=== PATIENT | female | born 1970 ===

== ENCOUNTER 2016-06-26 20:40 | Observation (INO) | payer OTHER ==
[2016-06-26 20:40] VITALS: BMI 29.9
[2016-06-26] MEDS ORDERED: Albuterol-Ipratrop 3 mg / 0.5 (3 ml) UD IH STA ×2 (21:58→23:19)
--- NOTE | 2016-06-26 22:02 | ED PDOC ---
HPI: Asthma Time Seen by Provider: 06/26/16 21:45 Chief Complaint (Nursing): Chest Pain Chief Complaint (Provider): sob History Per: Patient History/Exam Limitations: no limitations Onset/Duration Of Symptoms: Days (3 weeks) Current Symptoms Are (Timing): Still Present Associated Symptoms: Cough, Itching, Chest Pain Precipitating Factors: URI Symptoms, Allergies Additional History Per: Patient Additional Complaint(s): 46 y/o female history of asthma presents with shortness of breath x 3 weeks. Associated nonproductive cough, nasal congestion, itchy eyes, and chest pain with cough. Patient seen by PMD last week and prescribed Claritin, albuterol HFA, and Benadryl without improvement of symptoms. Denies fever, headache, ear pain, nausea/vomiting, palpitations, abdominal pain, changes in bowel movements , leg pain/swelling. Patient states she gets asthma attack this time every year due to allergies. Past Medical History Reviewed: Historical Data, Nursing Documentation, Vital Signs Vital Signs: Last Vital Signs Temp 98.1 F 06/26/16 20:51 Pulse 92 H 06/26/16 20:51 Resp 18 06/26/16 20:51 BP 116/74 06/26/16 20:51 Pulse Ox 95 06/26/16 20:51 - Medical History PMH: Asthma - Surgical History Surgical History: Appendectomy - Family History Family History: States: Unknown Family Hx - Social History Current smoker - smoking cessation education provided: No Alcohol: None Drugs: Denies - Home Medications Home Medications: Ambulatory Orders Medication Instructions Recorded DiphenhydrAMINE [Benadryl] 1 tab PO Q6 PRN #24 cap 07/26/14 Loratadine [Claritin] 10 mg PO DAILY 06/27/16 - Allergies Allergies/Adverse Reactions: Allergies Allergy/AdvReac Type Severity Reaction Status Date / Time pollen extracts Allergy CONGESTION Verified 06/26/16 20:50 Review of Systems ROS Statement: Except As Marked, All Systems Reviewed And Found Negative ENT: Positive for: Nose Discharge, Nose Congestion Cardiovascular: Positive for: Chest Pain Respiratory: Positive for: Cough, Shortness of Breath Physical Exam - Reviewed Nursing Documentation Reviewed: Yes Vital Signs Reviewed: Yes - Physical Exam Appears: Positive for: Well, Non-toxic, No Acute Distress Head Exam: Positive for: ATRAUMATIC, NORMAL INSPECTION, NORMOCEPHALIC Skin: Positive for: Normal Color Eye Exam: Positive for: Normal appearance ENT: Positive for: Nasal Congestion Neck: Positive for: Normal Cardiovascular/Chest: Positive for: Regular Rate, Rhythm Respiratory: Positive for: Wheezing (diffuse expiratory). Negative for: Accessory Muscle Use, Respiratory Distress Gastrointestinal/Abdominal: Positive for: Normal Exam Back: Positive for: Normal Inspection Extremity: Positive for: Normal ROM Neurologic/Psych: Positive for: Alert, Oriented - Laboratory Results Result Diagrams: 06/26/16 22:18 06/26/16 22:18 - ECG O2 Sat by Pulse Oximetry: 95 - Radiology X-Ray: Viewed By Ar X-Ray Interpretation: No Acute Disease - Progress ED Course And Treament: labs, ekg, chest xray, IV solumedrol, duonebs Patient with O2 92-93% room air after solumedrol, [address] in observation for acute asthma exacerbation/bronchitis Disposition - Clinical Impression Clinical Impression: Asthma exacerbation - Patient ED Disposition Is Patient to be Admitted: Yes - Disposition Disposition Time: 01:11 Condition: FAIR
[2016-06-26 22:25] LABS: BASO # 0.1 K/uL (0.0-0.2); BASO % 0.9 % (0.0-2.0); EOS # 1.5 K/uL (0.0-0.7); EOS % 15.3 % (0.0-4.0); HEMATOCRIT 40.4 % (34.0-47.0); LYMPH # 3.2 K/uL (1.0-4.3); LYMPH % 32.8 % (20.0-40.0); MEAN CELL VOLUME 85.6 fl (81.0-99.0); MEAN CORPUSCULAR HEMOGLOBIN 28.5 pg (27.0-31.0); MEAN CORPUSCULAR HGB CONC 33.2 g/dL (33.0-37.0); MEAN PLATELET VOLUME 10.4 fl (7.2-11.7); MONO # 0.6 K/uL (0.0-0.8); MONO % 6.3 % (0.0-10.0); NEUT # 4.3 K/uL (1.8-7.0); NEUT % 44.7 % (50.0-75.0); NRBC % 0.1 % (0.0-0.0); RED CELL DISTRIBUTION WIDTH 14.4 % (11.5-14.5); WHITE BLOOD COUNT 9.6 K/uL (4.8-10.8)
[2016-06-26 22:32] LABS: ALB/GLOB RATIO 1.5 (1.0-2.1); ALKALINE PHOSPHATASE 106 U/L (38-126); ALT/SGPT 23 U/L (9-52); AST/SGOT 25 U/L (14-36); BILIRUBIN,TOTAL 0.2 mg/dl (0.2-1.3); BLOOD UREA NITROGEN 16 mg/dl (7-17); CALCIUM 9.3 mg/dL (8.4-10.2); CARBON DIOXIDE 27 mmol/L (22-30); CHLORIDE 104 mmol/L (98-107); GFR AFRICAN-AMERICAN > 60; GLUCOSE,RANDOM 109 mg/dL (65-105); POTASSIUM 3.7 MMOL/L (3.6-5.0); SODIUM 140 mmol/l (132-148); TOTAL PROTEIN 7.5 G/DL (6.3-8.2)
[2016-06-26] MEDS ORDERED: Albuterol-Ipratrop 3 mg / 0.5 (3 ml) UD ONE (23:37)
[2016-06-27] MEDS ORDERED: Albuterol-Ipratrop 3 mg / 0.5 (3 ml) UD ONE (00:15)
[2016-06-27] MEDS ORDERED: Albuterol-Ipratrop 3 mg / 0.5 (3 ml) UD IH STA (00:39)
--- NOTE | 2016-06-27 02:50 | CP.PCM.HP ---
History of Present Illness - History of Present Illness History of Present Illness: CC: SOB, wheezing, itchy eyes 46 y/o female history of intermittent asthma presents with shortness of breath x 3 weeks. Patient states taking albuterol PRN at home which has not helped improve symptoms. Last use was this evening. Associated nonproductive cough, nasal congestion, itchy eyes. Patient seen by PMD last week and prescribed Claritin, albuterol HFA, and Benadryl without improvement of symptoms. Denies fever, headache, ear pain, nausea/vomiting, palpitations,chest pain, abdominal pain, changes in urination/bowel movements, leg pain/swelling. PMD: [facility] PMH: intermittent asthma PSH: appendectomy Allergies: seasonal Meds: claritin, benadryl PRN, ventolin PRN ED Course: afebrile, BP stable, decreased O2 saturation on room air, mild tachycardia labs, ekg, chest xray, IV solumedrol, duonebs Patient with O2 NC 92-93% room air after solumedrol, 3 duoneb treatments. observation for acute asthma exacerbation Present on Admission - Present on Admission Any Indicators Present on Admission: No Review of Systems - Review of Systems Review of Systems: see hpi Past Patient History - Infectious Disease Hx of Infectious Diseases: None - Past Social History Alcohol: None Drugs: Denies - PULMONARY Hx Respiratory Disorders: Yes (ASTHMA) - PSYCHIATRIC Hx Substance Use: No - SURGICAL HISTORY Hx Appendectomy: Yes - ANESTHESIA Hx Anesthesia: Yes Hx Anesthesia Reactions: No Meds Allergies/Adverse Reactions: Allergies Allergy/AdvReac Type Severity Reaction Status Date / Time pollen extracts Allergy CONGESTION Verified 06/26/16 20:50 Physical Exam - Constitutional Appears: Non-toxic, No Acute Distress - Head Exam Head Exam: ATRAUMATIC - Eye Exam Eye Exam: EOMI Pupil Exam: PERRL - ENT Exam ENT Exam: Normal Oropharynx Additional comments: nasal congestion, swollen turbinates BL - Neck Exam Neck exam: Positive for: Full Rom. Negative for: Tenderness - Respiratory Exam Respiratory Exam: Decreased Breath Sounds, Wheezes. absent: Accessory Muscle Use, Rales, Rhonchi, Respiratory Distress, Stridor Additional comments: BL decreased breath sounds on lower lung bases, scattered expiratory wheezing in upper lobes, no rales or rhonchi - Cardiovascular Exam Cardiovascular Exam: +S1, +S2 - GI/Abdominal Exam GI & Abdominal Exam: Normal Bowel Sounds, Soft. absent: Tenderness - Extremities Exam Extremities exam: Positive for: pedal pulses present. Negative for: calf tenderness, pedal edema - Neurological Exam Neurological exam: Alert, Oriented x3 - Psychiatric Exam Psychiatric exam: Normal Affect, Normal Mood - Skin Skin Exam: Dry, Normal Color, Warm Results - Vital Signs Recent Vital Signs: Last Vital Signs Temp 97.8 F 06/27/16 02:04 Pulse 100 H 06/27/16 02:04 Resp 18 06/27/16 02:04 BP 108/72 06/27/16 02:04 Pulse Ox 95 06/27/16 01:12 - Labs Result Diagrams: 06/26/16 22:18 06/26/16 22:18 Assessment & Plan - Assessment and Plan (Free Text) Plan: 46 y/o female history of intermittent asthma presents with shortness of breath x 3 weeks Dyspnea likely 2/2 asthma exacerbation, triggered by allergies ED Course: afebrile, BP stable, decreased O2 saturation on room air, mild tachycardia labs, ekg, chest xray, IV solumedrol, duonebs Patient with O2 NC 92-93% room air after solumedrol 125 mg IV x 1, 3 duoneb treatments. admit to telemetry O2 NC [address] on monitor, monitor respiratory status Albuterol IH QID SANDY prednisone 20 mg PO daily start monteleukast 5mg PO daily in lieu of allergic picture labs in AM Ppx DVT - SCDs, ambulate Diet
[2016-06-27] MEDS ORDERED: Albuterol-Ipratrop 3 mg / 0.5 (3 ml) UD INH STA (03:36)
[2016-06-27 06:50] LABS: BASO % 0.3 % (0.0-2.0); EOS % 0.3 % (0.0-4.0); HEMATOCRIT 39.8 % (34.0-47.0); LYMPH # 0.6 K/uL (1.0-4.3); LYMPH % 7.8 % (20.0-40.0); MEAN CELL VOLUME 85.5 fl (81.0-99.0); MEAN CORPUSCULAR HEMOGLOBIN 28.8 pg (27.0-31.0); MEAN CORPUSCULAR HGB CONC 33.6 g/dL (33.0-37.0); MONO # 0.1 K/uL (0.0-0.8); MONO % 1.2 % (0.0-10.0); NEUT # 6.9 K/uL (1.8-7.0); NEUT % 90.4 % (50.0-75.0); NRBC % 0.1 % (0.0-0.0); PLATELET COUNT 210 K/uL (130-400); RED CELL DISTRIBUTION WIDTH 13.6 % (11.5-14.5); WHITE BLOOD COUNT 7.6 K/uL (4.8-10.8)
[2016-06-27 07:21] LABS: BLOOD UREA NITROGEN 14 mg/dl (7-17); CALCIUM 9.4 mg/dL (8.4-10.2); CARBON DIOXIDE 23 mmol/L (22-30); CHLORIDE 104 mmol/L (98-107); GFR AFRICAN-AMERICAN > 60; GLUCOSE,RANDOM 163 mg/dL (65-105); SODIUM 141 mmol/l (132-148)
[2016-06-27 07:45] VITALS: RESP 20
[2016-06-27] MEDS: Albuterol 0.042% Inhal Sol (1.25 mg/3 mL) UD INH SCH ×3 (07:59→15:45)
[2016-06-27] MEDS ORDERED: Pneumococcal 23-Valent Vaccine IM ONE (09:00)
[2016-06-27 10:33] LABS: BASOPHIL 1 % (0-2); EOSINOPHIL 1 % (0-7); NEUTROPHIL 86 % (42-75); TOTAL CELLS COUNTED 100
[2016-06-27 10:34] LABS: LARGE PLATELETS PRESENT
--- NOTE | 2016-06-27 10:46 | RAD ---
HISTORY: cough, sob COMPARISON: 06/14/2015 FINDINGS: LUNGS: No active pulmonary disease. PLEURA: No significant pleural effusion identified, no pneumothorax apparent. CARDIOVASCULAR: Normal. OSSEOUS STRUCTURES: No significant abnormalities. VISUALIZED UPPER ABDOMEN: Normal. OTHER FINDINGS: None. IMPRESSION: No active disease. No significant interval change compared to the prior examination(s).
[2016-06-27 17:08] VITALS: BP 108/69; PULSE 83; TEMP 98.1; O2SAT 99
== END 2016-06-27 17:24 | disposition home or self-care (01) ==
LOC: H.ER 20:40 → H.ERHOLD 06-27 01:10 → H.MEDSURG1 06-27 02:13
PROVIDERS: ADMIT Family Medicine Geriatric Medicine; ATTEND Family Medicine Geriatric Medicine
DX: J45.21 Mild intermittent asthma with (acute) exacerbation (principal); Z23 Encounter for immunization

== ENCOUNTER 2016-06-27 22:00 | Emergency (ER) | payer OTHER ==
[2016-06-27 22:00] VITALS: BMI 29.9
[2016-06-27 22:09] VITALS: BP 127/81; PULSE 94; RESP 18; TEMP 98; O2SAT 96
--- NOTE | 2016-06-27 22:17 | ED PDOC ---
Upper Extremity Pain/Injury Time Seen by Provider: 06/27/16 22:11 Chief Complaint (Nursing): Upper Extremity Problem/Injury Chief Complaint (Provider): Right upper arm pain for a few hours History Per: Patient History/Exam Limitations: no limitations Onset/Duration Of Symptoms: Hrs Current Symptoms Are (Timing): Still Present Additional Complaint(s): Pt reports having injection of solumedrol yesterday and reports pain at injection site. PT states she did not do anything for pain. Past Medical History Reviewed: Historical Data, Nursing Documentation, Vital Signs Vital Signs: Last Vital Signs Temp 98.0 F 06/27/16 22:04 Pulse 94 H 06/27/16 22:04 Resp 18 06/27/16 22:04 BP 127/81 06/27/16 22:04 Pulse Ox 96 06/27/16 22:04 - Medical History PMH: Asthma, Bronchitis Denies: Chronic Kidney Disease - Surgical History Surgical History: Appendectomy - Family History Family History: States: Unknown Family Hx - Home Medications Home Medications: Ambulatory Orders Medication Instructions Recorded DiphenhydrAMINE [Benadryl] 1 tab PO Q6 PRN #24 cap 07/26/14 Fluticasone Propionate [Flonase 9.9 ml NS DAILY 30 Days 06/27/16 Allergy Relief] Loratadine [Claritin] 10 mg PO DAILY 06/27/16 predniSONE [predniSONE Tab] 20 mg PO DAILY #4 tab 06/27/16 - Allergies Allergies/Adverse Reactions: Allergies Allergy/AdvReac Type Severity Reaction Status Date / Time pollen extracts Allergy CONGESTION Verified 06/27/16 22:04 Review of Systems ROS Statement: Except As Marked, All Systems Reviewed And Found Negative Skin: Positive for: Other Physical Exam - Reviewed Nursing Documentation Reviewed: Yes Vital Signs Reviewed: Yes - Physical Exam Appears: Positive for: Well, Non-toxic, No Acute Distress Head Exam: Positive for: ATRAUMATIC, NORMAL INSPECTION, NORMOCEPHALIC Skin: Positive for: Normal Color, Warm. Negative for: Rash (No erythema, edema at injection site; no palpable induration ) Eye Exam: Positive for: Normal appearance ENT: Positive for: Normal ENT Inspection Neck: Positive for: Normal, Painless ROM Respiratory: Negative for: Accessory Muscle Use Back: Positive for: Normal Inspection Extremity: Positive for: Normal ROM. Negative for: Tenderness Neurologic/Psych: Positive for: Alert - ECG O2 Sat by Pulse Oximetry: 96 Disposition - Clinical Impression Clinical Impression: Pain at injection site - Patient ED Disposition Is Patient to be Admitted: No Counseled Patient/Family Regarding: Diagnosis, Need For Followup - Disposition Referrals: [facility] [Outside] Disposition: Routine/Home Disposition Time: 22:12 Condition: GOOD Instructions: Methylprednisolone (By injection) Print Language: ALGERIAN
== END 2016-06-27 22:32 | disposition home or self-care (01) ==
LOC: H.ER 22:00
DX: M79.621 Pain in right upper arm (principal)

== ENCOUNTER 2017-01-06 09:36 | Emergency (ER) | payer SELFPAY ==
[2017-01-06 09:47] VITALS: BMI 29.2
[2017-01-06 09:48] VITALS: BP 114/77; PULSE 73; RESP 16; TEMP 97; O2SAT 100
--- NOTE | 2017-01-06 10:13 | ED PDOC ---
HPI: General Adult Time Seen by Provider: 01/06/17 10:12 Chief Complaint (Nursing): Flu-like Symptoms Chief Complaint (Provider): cough History Per: Patient Additional Complaint(s): 46-year-old female with no past medical history presents to emergency department with cough and sore throat for one week. Patient also has chills and body aches. She has not measured her temperature. Patient took [id number] cough medication but this has not helped. She denies recent travel or known sick contacts. Past Medical History Reviewed: Historical Data, Nursing Documentation, Vital Signs Vital Signs: Last Vital Signs Temp 97.0 F L 01/06/17 09:47 Pulse 73 01/06/17 09:47 Resp 16 01/06/17 09:47 BP 114/77 01/06/17 09:47 Pulse Ox 100 01/06/17 10:41 - Medical History PMH: No Chronic Diseases - Surgical History Surgical History: Appendectomy - Family History Family History: States: No Known Family Hx - Living Arrangements Living Arrangements: With Family - Social History Current smoker - smoking cessation education provided: No Alcohol: None Drugs: Denies - Home Medications Home Medications: Ambulatory Orders Medication Instructions Recorded DiphenhydrAMINE [Benadryl] 1 tab PO Q6 PRN #24 cap 07/26/14 Fluticasone Propionate [Flonase 9.9 ml NS DAILY 30 Days spray.susp 06/27/16 Allergy Relief] Loratadine [Claritin] 10 mg PO DAILY 06/27/16 predniSONE [predniSONE Tab] 20 mg PO DAILY #4 tab 06/27/16 Albuterol HFA [Ventolin HFA 90 1 puff IH ASDIR #1 unit 01/06/17 mcg/actuation (8 g)] Azithromycin [Zithromax] 250 mg PO DAILY #6 tab 01/06/17 Benzonatate 200 mg PO TID PRN #20 capsule 01/06/17 - Allergies Allergies/Adverse Reactions: Allergies Allergy/AdvReac Type Severity Reaction Status Date / Time pollen extracts Allergy CONGESTION Verified 06/27/16 22:04 Review of Systems ROS Statement: Except As Marked, All Systems Reviewed And Found Negative Constitutional: Positive for: Fever (subjective, not measured), Other (body aches) ENT: Positive for: Throat Pain Cardiovascular: Negative for: Chest Pain Respiratory: Positive for: Cough Gastrointestinal: Negative for: Nausea, Vomiting Neurological: Negative for: Headache, Dizziness Physical Exam - Reviewed Nursing Documentation Reviewed: Yes Vital Signs Reviewed: Yes - Physical Exam Appears: Positive for: Well, Non-toxic, No Acute Distress Skin: Negative for: Rash Eye Exam: Positive for: Normal appearance ENT: Positive for: Nasal Congestion, Pharyngeal Erythema, Tonsillar Swelling. Negative for: Tonsillar Exudate Cardiovascular/Chest: Positive for: Regular Rate, Rhythm Respiratory: Positive for: Normal Breath Sounds. Negative for: Accessory Muscle Use, Rhonchi, Wheezing, Respiratory Distress Gastrointestinal/Abdominal: Positive for: Soft. Negative for: Tenderness, Distended, Guarding, Rebound Back: Negative for: L CVA Tenderness, R CVA Tenderness Extremity: Negative for: Pedal Edema Neurologic/Psych: Positive for: Alert, Oriented - Laboratory Results Urine POC: Negative - ECG O2 Sat by Pulse Oximetry: 100 Pulse Ox Interpretation: Normal - Other Rad CXR X-Ray: Interpreted by Me, Viewed By Me X-Ray Interpretation: no infiltrate Medical Decision Making Medical Decision Makin-year-old female with sore throat and cough. Patient is afebrile, well appearing. Plan: Chest x-ray Flu swab Rapid strep and throat culture PO motrin Flu and strep are negative Prescriptions given for Zithromax, Ventolin and Tessalon Perles. Advised NSAIDs for body aches and fever, advised follow-up with clinic in 2-3 days. Disposition - Clinical Impression Clinical Impression: Bronchitis - Patient ED Disposition Is Patient to be Admitted: No Counseled Patient/Family Regarding: Studies Performed, Diagnosis, Need For Followup, Rx Given - Disposition [facility]errals[facility] [Outside] Disposition: Routine/Home Disposition Time: 11:50 Condition: STABLE Additional Instructions: Take prescription medications as directed. [id number] Tylenol and Motrin for body aches and fever as needed. Rest and drink plenty of fluids. Follow-up with clinic in 2-3 days. Prescriptions: Albuterol HFA [Ventolin HFA 90 mcg/actuation (8 g)] 1 puff IH ASDIR #1 unit Azithromycin [Zithromax] 250 mg PO DAILY #6 tab Benzonatate 200 mg PO TID PRN #20 capsule PRN Reason: Cough Instructions: Acute Bronchitis (ED) Forms: [facility] (Kyrgyz) Print Language: STATELESS
--- NOTE | 2017-01-06 11:10 | RAD ---
HISTORY: cough COMPARISON: No prior. TECHNIQUE: Chest PA and lateral FINDINGS: LUNGS: No active pulmonary disease. PLEURA: No significant pleural effusion identified. No pneumothorax apparent. CARDIOVASCULAR: Upper limits cardiac silhouette again appreciated. No pulmonary derangement appreciated. OSSEOUS STRUCTURES: No significant abnormalities. VISUALIZED UPPER ABDOMEN: Normal. OTHER FINDINGS: None. IMPRESSION: No acute pulmonary disease appreciated. Stable prominent cardiac silhouette again noted.
== END 2017-01-06 12:35 | disposition home or self-care (01) ==
LOC: H.ER 09:36
DX: J40 Bronchitis, not specified as acute or chronic (principal)

== ENCOUNTER 2017-02-15 09:11 | Emergency (ER) | payer SELFPAY ==
[2017-02-15 09:11] VITALS: BMI 29.2
[2017-02-15] MEDS ORDERED: DiphenhydrAMINE 50 mg/ml Inj IVP STA (10:01)
[2017-02-15] MEDS ORDERED: Albuterol 0.083% Inhal Sol (2.5 mg/3 mL) UD INH ONE (10:06)
[2017-02-15 10:16] LABS: BASO % 0.3 % (0.0-2.0); EOS # 0.1 K/uL (0.0-0.7); EOS % 0.7 % (0.0-4.0); HEMOGLOBIN 13.7 g/dL (12.0-16.0); LYMPH # 1.4 K/uL (1.0-4.3); LYMPH % 15.3 % (20.0-40.0); MEAN CELL VOLUME 85.1 fl (81.0-99.0); MEAN CORPUSCULAR HEMOGLOBIN 28.4 pg (27.0-31.0); MEAN CORPUSCULAR HGB CONC 33.4 g/dL (33.0-37.0); MEAN PLATELET VOLUME 10.4 fl (7.2-11.7); MONO # 0.7 K/uL (0.0-0.8); MONO % 8.1 % (0.0-10.0); NEUT # 6.9 K/uL (1.8-7.0); NEUT % 75.6 % (50.0-75.0); RBC 4.82 Mil/uL (3.80-5.20); RED CELL DISTRIBUTION WIDTH 13.8 % (11.5-14.5); WHITE BLOOD COUNT 9.2 K/uL (4.8-10.8)
--- NOTE | 2017-02-15 10:22 | ED PDOC ---
HPI: Allergic Reaction Time Seen by Provider: 02/15/17 09:15 Chief Complaint (Nursing): Allergic Reaction Chief Complaint (Provider): Allergic Reaction History Per: Patient History/Exam Limitations: no limitations Onset/Duration Of Symptoms: Hrs (x1) Current Symptoms Are (Timing): Still Present Associated Symptoms: Skin Rash, Swelling Additional Complaint(s): Gris Neri is a 46 year old female with a history of asthma that presents to the ED with a chief complaint of an allergic reaction that began this morning around 8:00 AM. Patient reports that upon waking up she drank a glass of water with lemon which resulted in swelling of her eyes and development of diffuse rash to abdomen and arms. Patient did not take any medication at home and reports that her known allergies are only seasonal. Past Medical History Reviewed: Historical Data, Nursing Documentation, Vital Signs Vital Signs: Last Vital Signs Temp 99.0 F 02/15/17 09:55 Pulse 104 H 02/15/17 09:55 Resp 20 02/15/17 09:55 BP 122/70 02/15/17 09:55 Pulse Ox 97 02/15/17 09:55 - Medical History PMH: Asthma, Bronchitis Denies: Chronic Kidney Disease - Surgical History Surgical History: Appendectomy - Family History Family History: States: Unknown Family Hx - Home Medications Home Medications: Ambulatory Orders Medication Instructions Recorded DiphenhydrAMINE [Benadryl] 1 tab PO Q6 PRN #24 cap 07/26/14 Fluticasone Propionate [Flonase 9.9 ml NS DAILY 30 Days spray.susp 06/27/16 Allergy Relief] Loratadine [Claritin] 10 mg PO DAILY 06/27/16 predniSONE [predniSONE Tab] 20 mg PO DAILY #4 tab 06/27/16 Albuterol HFA [Ventolin HFA 90 1 puff IH ASDIR #1 unit 01/06/17 mcg/actuation (8 g)] Azithromycin [Zithromax] 250 mg PO DAILY #6 tab 01/06/17 Benzonatate 200 mg PO TID PRN #20 capsule 01/06/17 DiphenhydrAMINE [Benadryl] 25 mg PO Q6H PRN #10 cap 02/15/17 predniSONE [Prednisone] 40 mg PO DAILY #8 tab 02/15/17 - Allergies Allergies/Adverse Reactions: Allergies Allergy/AdvReac Type Severity Reaction Status Date / Time pollen extracts Allergy CONGESTION Verified 06/27/16 22:04 Review of Systems ENT: Positive for: Other (eyelid swelling) Skin: Positive for: Rash (to abdomen and arms) Physical Exam - Reviewed Nursing Documentation Reviewed: Yes Vital Signs Reviewed: Yes - Physical Exam Appears: Positive for: Non-toxic, No Acute Distress Head Exam: Positive for: ATRAUMATIC, NORMOCEPHALIC Skin: Positive for: Warm, Rash (diffuse urticarial rash present to abdomen and arms.) Eye Exam: Positive for: EOMI, PERRL. Negative for: Normal appearance (Eyelids swollen, red) Cardiovascular/Chest: Positive for: Regular Rate, Rhythm. Negative for: Murmur Respiratory: Positive for: Normal Breath Sounds. Negative for: Wheezing Gastrointestinal/Abdominal: Positive for: Normal Exam, Soft. Negative for: Tenderness Extremity: Positive for: Normal ROM. Negative for: Tenderness, Swelling Neurologic/Psych: Positive for: Alert, Oriented. Negative for: Motor/Sensory Deficits - Laboratory Results Result Diagrams: 02/15/17 09:38 02/15/17 09:38 - ECG O2 Sat by Pulse Oximetry: 97 (RA) Pulse Ox Interpretation: Normal Disposition - Clinical Impression Clinical Impression: Allergic reaction - Patient ED Disposition Is Patient to be Admitted: No Counseled Patient/Family Regarding: Studies Performed, Diagnosis, Need For Followup - Disposition Referrals: [facility] [Outside] [facility] [Outside] Provider TBD, [Primary Care Provider] - Disposition: Routine/Home Disposition Time: 13:00 Condition: IMPROVED Additional Instructions: follow up with your primary doctor in 1-2 days take medications for allergies return to the ED With any worsening or concerning symptoms. Prescriptions: DiphenhydrAMINE [Benadryl] 25 mg PO Q6H PRN #10 cap PRN Reason: Allergy Symptoms predniSONE [Prednisone] 40 mg PO DAILY #8 tab Instructions: Food Allergy (ED), General Allergic Reaction (ED) Forms: [employer] (Turkish) Print Language: UKRAINIAN Medical Decision Making Medical Decision Making: Impression: Allergic Reaction Plan: * CMP * CBC * Solumedrol 125 mg IV * Benadryl 50 mg IV * Pepcid 20 mg IV * Albuterol 2.5 mg INH * Peak Flow Pre/Post Tx * Reevaluation 13:18 Patient reports significant improvement in symptoms. Patient will be given Rx for Prednisone and is stable for discharge home. Scribe Attestation: Documented by Beatrice Gregorio, acting as a scribe for Maru Oneill MD. Provider Scribe Attestation: All medical record entries made by the Scribe were at my direction and personally dictated by me. I have reviewed the chart and agree that the record accurately reflects my personal performance of the history, physical exam, medical decision making, and the department course for this patient. I have also personally directed, reviewed, and agree with the discharge instructions and disposition.
[2017-02-15 10:24] LABS: ALB/GLOB RATIO 1.5 (1.0-2.1); ALBUMIN 4.5 g/dL (3.5-5.0); ALT/SGPT 36 U/L (9-52); AST/SGOT 22 U/L (14-36); BLOOD UREA NITROGEN 16 mg/dl (7-17); GFR AFRICAN-AMERICAN > 60; GFR NON-AFRICAN AMERICAN > 60
[2017-02-15 13:31] VITALS: BP 132/74; PULSE 95; RESP 19; TEMP 98.3
[2017-02-19 04:40] VITALS: O2SAT 97
== END 2017-02-15 13:43 | disposition home or self-care (01) ==
LOC: H.ER 09:11 → SUPCPDRO 09:11 → H.ER 13:43
DX: T78.40XA Allergy, unspecified, initial encounter (principal); J45.909 Unspecified asthma, uncomplicated
CPT/HCPCS: 80053; 85025; 96374; 96375; 99282; J1200; J2930

== ENCOUNTER 2017-07-02 20:05 | Emergency (ER) | payer SELFPAY ==
[2017-07-02 20:05] VITALS: BMI 29.2
[2017-07-02 20:22] VITALS: O2SAT 95
[2017-07-02] MEDS ORDERED: Albuterol-Ipratrop 3 mg / 0.5 (3 ml) UD IH STA ×2 (21:57→22:38)
--- NOTE | 2017-07-02 22:01 | ED PDOC ---
HPI: CCC, URI, Sore Throat Time Seen by Provider: 07/02/17 21:47 Chief Complaint (Nursing): Cough, Cold, Congestion History Per: Patient Onset/Duration Of Symptoms: Other (2 weeks) Current Symptoms Are (Timing): Still Present Location Of Pain: Throat Associated Symptoms: Cough. denies: Fever Severity: Moderate Additional Complaint(s): Sneezing itchy eyes, nonproductive cough and wheezing x 2 weeks. No fever. Has been taking Claritin with no relief. Past Medical History Vital Signs: Last Vital Signs Temp 98.6 F 07/02/17 20:19 Pulse 74 07/02/17 20:19 Resp 18 07/02/17 20:19 BP 110/73 07/02/17 20:19 Pulse Ox 95 07/02/17 22:01 - Medical History PMH: Asthma, Bronchitis Denies: Chronic Kidney Disease - Surgical History Surgical History: Appendectomy - Family History Family History: States: Unknown Family Hx - Home Medications Home Medications: Ambulatory Orders Medication Instructions Recorded DiphenhydrAMINE [Benadryl] 1 tab PO Q6 PRN #24 cap 07/26/14 Fluticasone Propionate [Flonase 9.9 ml NS DAILY 30 Days spray.susp 06/27/16 Allergy Relief] Loratadine [Claritin] 10 mg PO DAILY 06/27/16 predniSONE [predniSONE Tab] 20 mg PO DAILY #4 tab 06/27/16 Albuterol HFA [Ventolin HFA 90 1 puff IH ASDIR #1 unit 01/06/17 mcg/actuation (8 g)] Azithromycin [Zithromax] 250 mg PO DAILY #6 tab 01/06/17 Benzonatate 200 mg PO TID PRN #20 capsule 01/06/17 DiphenhydrAMINE [Benadryl] 25 mg PO Q6H PRN #10 cap 02/15/17 predniSONE [Prednisone] 40 mg PO DAILY #8 tab 02/15/17 Albuterol HFA [Ventolin HFA 90 2 puff IH Q4H #1 puff 07/02/17 mcg/actuation (8 g)] Cetirizine HCl [Zyrtec] 10 mg PO DAILY #10 capsule 07/02/17 Fluticasone Nasal [Flonase] 1 actuation NS DAILY #1 spr 07/02/17 Prednisone 50 mg PO DAILY #5 tab 07/02/17 - Allergies Allergies/Adverse Reactions: Allergies Allergy/AdvReac Type Severity Reaction Status Date / Time pollen extracts Allergy CONGESTION Verified 06/27/16 22:04 Review of Systems Constitutional: Negative for: Fever ENT: Positive for: Nose Congestion Respiratory: Positive for: Cough, Wheezing Physical Exam - Physical Exam Appears: Positive for: Non-toxic, No Acute Distress Skin: Positive for: Normal Color, Warm, DRY ENT: Negative for: Pharyngeal Erythema, Tonsillar Exudate Neck: Positive for: Normal, Painless ROM Cardiovascular/Chest: Positive for: Regular Rate, Rhythm Respiratory: Positive for: Wheezing. Negative for: Respiratory Distress Extremity: Positive for: Normal ROM Neurologic/Psych: Positive for: Alert, Oriented - ECG O2 Sat by Pulse Oximetry: 95 - Progress Re-evaluation Time: 23:03 Condition: Improved Disposition - Clinical Impression Clinical Impression: Allergic rhinitis, Asthma exacerbation - Patient ED Disposition Is Patient to be Admitted: No Counseled Patient/Family Regarding: Diagnosis, Need For Followup, Rx Given - Disposition Referrals: [facility] [Outside] Disposition: Routine/Home Disposition Time: 23:04 Condition: FAIR Prescriptions: Albuterol HFA [Ventolin HFA 90 mcg/actuation (8 g)] 2 puff IH Q4H #1 puff Cetirizine HCl [Zyrtec] 10 mg PO DAILY #10 capsule Fluticasone Nasal [Flonase] 1 actuation NS DAILY #1 spr Prednisone 50 mg PO DAILY #5 tab Instructions: Seasonal Allergies (DC), Asthma, Adult (DC) Forms: [employer] (Burmese) Print Language: [place]
[2017-07-02] MEDS ORDERED: Albuterol-Ipratrop 3 mg / 0.5 (3 ml) UD ONE (23:06)
[2017-07-03 01:07] VITALS: BP 117/79; PULSE 89; RESP 16; TEMP 98
== END 2017-07-03 00:25 | disposition home or self-care (01) ==
LOC: H.ER 20:05
DX: J45.901 Unspecified asthma with (acute) exacerbation (principal)